=== PATIENT | male | born 1945 ===

== ENCOUNTER 2025-06-27 15:05 | Outpatient (AMB) | payer OTHER, SELFPAY ==
--- NOTE | 2025-06-27 15:09 | MHC.PC.OV ---
Vital Signs 06/27/25 15:23 Height 5 ft 3.78 in Weight 180 lb BMI 31.1 BP 110/58 L Blood Pressure Location Rt brachial Position Sitting Respiration 14 Pulse 84 Pulse Source Pulse Oximeter Temp 98.1 F Temp Source Oral Pulse Oximetry (%) 94 Oxygen Delivery Method Room Air Intake Visit Reasons: est/medication refills Intake Note: establish and med refills Professor Of Literacy Required: No Allergies No Known Allergies Allergy (Verified 06/27/25 15:15) Medication List - Last Reconciled 06/27/25 by Perri Hou MD atorvastatin 10 mg PO DAILY bupropion HCl SR 150 mg PO BID citalopram 40 mg PO DAILY finasteride 5 mg PO DAILY lisinopril 2.5 mg PO DAILY mesalamine 800 mg PO QID metformin 500 mg PO TID metoprolol succinate ER 12.5 mg PO DAILY tamsulosin 0.8 mg PO BEDTIME vibegron (Gemtesa) 75 mg PO DAILY Tobacco use date assessed: 06/27/25 Fall risk assessment: 2 + Falls in past year Last assessed Fall Risk: 06/27/25 Dental Screening Dental Screen Date: 06/27/25 Did you have a dental visit in the last 12 months?: Yes Did you have a dental problem in the last 6 months where you did not have access to dental care?: No Was dental information given to patient?: Patient has dentist HPI HPI Comments History of Present Illness Details The patient is aan 80 year old male with a past medical history of ulcerative colitis, diabetes, transferring from Dr Kessler. Patients records have not yet been received. Patient has his medication list. He has some apparent memory issues and is by himself today. Unfortunately records not recieved. He says he lives alone and cares for himself Diabetes-patient unsure of last A1C. He is on metformin 500 mg tid. CV: on toprol 50mg twice daily, lisinopril,lipitor BH: on wellbutrin, celexa. Urology: on flomax. He does complain of recent polyuria ROS CONSTITUTIONAL: Denies weight loss, fever and chills. HEENT: Denies changes in vision and hearing. RESPIRATORY: Denies SOB and cough. CV: Denies palpitations and CP GI: Denies abdominal pain, nausea, vomiting and diarrhea. : see HPI MSK: Denies new myalgia and joint pain. SKIN: Denies rash and pruritus. NEUROLOGICAL: Denies headache PSYCHIATRIC: Denies recent changes in mood. PHYSICAL EXAM: GENERAL: Alert and oriented x 3. NAD EYES: EOMI. Anicteric. HENT: Moist mucous membranes. No scleral icterus. No cervical lymphadenopathy. LUNGS: Clear to auscultation bilaterally. CARDIOVASCULAR: Regular rate and rhythm. No murmur. No JVD. ABDOMEN: Soft, non-tender +bs EXTREMITIES: No edema. Non-tender. SKIN: No rashes or lesions. Warm. NEUROLOGIC: No focal neurological deficits. CN II-XII grossly intact PSYCHIATRIC: Cooperative. Appropriate mood and affect [facility] Medical History (Updated 07/02/25 @ 20:18 by Perri Hou MD) Incontinence Tremor Diabetes Family History Other FH: mental illness Social History (Updated 06/27/25 @ 15:22 by Benito Vallejo MA) Housing: House Alcohol intake: former Patient Tobacco Use Status: Former Tobacco user Tobacco use type: Cigarette Cigarette Packs Per Day: 1 Years Smoked: 30 e-Cigarette/Vaping Use: Never Used Second Hand Smoke Exposure: No service: Yes Current occupational status: retired Current occupational exposures/hazards: No Cognitive needs: No Hearing needs: No Vision needs: No Questionnaire PHQ-9 Over the last 2 weeks, how often have you been bothered by any of the following problems? 1. Little interest or pleasure in doing things: not at all 2. Feeling down, depressed, or hopeless: not at all 3. Trouble falling or staying asleep, or sleeping too much: several days 4. Feeling tired or having little energy: several days 5. Poor appetite or overeating: several days 6. Feeling bad about yourself - or that you are a failure or have let yourself or your family down: not at all 7. Trouble concentrating on things, such as reading the newspaper or watching television: not at all Depression Screening Interpretation: Negative Depression Screening Done: Yes 73883 - PHQ-9 Billing: Yes Source: Developed by Drs. Jose Antonio Marshall, Vicki Hernandez, Silviano Elena and colleagues, with an educational adin from [employer]. Thrive Questionnaire Date Thrive assessed: 06/27/25 I am a: Patient What is your living situation today?: I have a steady place to live Within the past 12 months, did the food you bought not last and you didn't have the money to get more?: Never true Within the past 12 months, did you worry whether your food would run out before you got money to buy more?: Never true Do you have trouble paying for medicines?: No Do you have trouble getting transportation to medical appointments?: No Do you have trouble paying your heating and electricity bill?: No Do you have trouble taking care of your child, family member or friend?: No Do you have trouble with day-to-day activities such as bathing, preparing meals, shopping, managing finances, etc.?: Yes Are you currently unemployed and looking for a job?: No Are you interested in more education?: No Please select the resources that you would like help with: Daily support THRIVE Score: 0 AUDIT C Alcohol Use Questionnaire (AUDIT-C) 1. How often do you have a drink containing alcohol?: Never 2. How many drinks containing alcohol do you have on a typical day when you are drinking?: 1 or 2 3. How often do you have six or more drinks on one occasion?: Never Total Score: 0 EVA-7 AMB Questionnaire EVA-7 Date EVA - 7 assessed: 06/27/25 Source: Developed by Drs. Jose Antonio Marshall, Vicki Hernandez, Silviano Elena and colleagues, with an educational adin from [employer]. ACT Questionnaire In the past 4 weeks, how much of the time did your asthma keep you from getting as much done at work, school or at home?: None of the time During the past 4 weeks, how often have you had shortness of breath?: Not at all During the past 4 weeks, how often did your asthma symptoms wake you up at night or earlier than usual in the morning?: Not at all During the past 4 weeks, how often have you had to use your rescue inhaler or nebulizer medication?: Not at all How would you rate your asthma control during the past 4 weeks?: Completely controlled Score: 25 Physical exam (Primary Care) Vital Signs: Last Vital Signs Temp 98.1 F 06/27/25 15:23 Pulse 84 06/27/25 15:23 Resp 14 06/27/25 15:23 BP 110/58 L 06/27/25 15:23 Pulse Ox 94 06/27/25 15:23 Oxygen Delivery Method Room Air 06/27/25 15:23 BMI result Body Mass Index 31.1 Tobacco/Smoking Status: Tobacco use Status Tobacco use date assessed 06/27/25 06/27/25 15:26 Patient Tobacco Use Status Former Tobacco user 06/27/25 15:26 Tobacco use type Cigarette 06/27/25 15:26 e-Cigarette/Vaping Use Never Used 06/27/25 15:26 Depression Screening Interpretation: Negative Thrive Assessment: Date of Thrive Assessment Date Thrive assessed 06/27/25 06/27/25 15:37 Coding Level of Care Code Est Pt Level 4 (16487) Complex EM visit Add On G2211 Diagnoses Type 2 diabetes mellitus without complication, without long-term current use of insulin E11.9 Diabetes mellitus type: type 2 Diabetes mellitus terminal operations supervisor insulin use: without terminal operations supervisor use Diabetes mellitus complication status: without complication Ulcerative colitis with complication, unspecified location K51.919 Ulcerative colitis location: unspecified ulcerative colitis location Digestive disease complication type: unspecified complication Benign prostatic hyperplasia with lower urinary tract symptoms, symptom details unspecified N40.1 Lower urinary tract symptom presence: symptoms present Lower urinary tract symptom detail: unspecified Urinary incontinence, unspecified type R32 Incontinence type: urinary Urinary Incontinence type: unspecified incontinence Additional Codes PHQ-9 - 28123 - PHQ-9 Billing: Yes ([id number]) Assessment & Plan Assessment & Plan (1) Diabetes: Code(s): E11.9 - Type 2 diabetes mellitus without complications Category: Medical Qualifiers: Diabetes mellitus type: type 2 Diabetes mellitus fci insulin use: without fci use Diabetes mellitus complication status: without complication Qualified Code(s): E11.9 - Type 2 diabetes mellitus without complications (2) Ulcerative colitis: Code(s): K51.90 - Ulcerative colitis, unspecified, without complications Category: Medical Qualifiers: Ulcerative colitis location: unspecified ulcerative colitis location Digestive disease complication type: unspecified complication Qualified Code(s): K51.919 - Ulcerative colitis, unspecified with unspecified complications (3) BPH (benign prostatic hyperplasia): Code(s): N40.0 - Benign prostatic hyperplasia without lower urinary tract symptoms Category: Medical Qualifiers: Lower urinary tract symptom presence: symptoms present Lower urinary tract symptom detail: unspecified Qualified Code(s): N40.1 - Benign prostatic hyperplasia with lower urinary tract symptoms (4) Incontinence: Code(s): R32 - Unspecified urinary incontinence Category: Medical Qualifiers: Incontinence type: urinary Urinary Incontinence type: unspecified incontinence Qualified Code(s): R32 - Unspecified urinary incontinence Plan 80 year old male presenting to [facility] Reviewed patient report of past medical, surgical, social -his records have not yet been received and he has some memory/cognitive deficit Diabetes-check labs polyuria, BPH-referral urology. Orders: Orders Lipid Panel 06/27/25 E11.9 - Type 2 diabetes mellitus without complications, K51.90 - Ulcerative colitis, unspecified, without complications, R25.1 - Tremor, unspecified TSH reflex Free T4 06/27/25 E11.9 - Type 2 diabetes mellitus without complications, K51.90 - Ulcerative colitis, unspecified, without complications, R25.1 - Tremor, unspecified Vitamin B12 and Folate 06/27/25 E11.9 - Type 2 diabetes mellitus without complications, K51.90 - Ulcerative colitis, unspecified, without complications, R25.1 - Tremor, unspecified Urine Culture 06/27/25 N40.0 - Benign prostatic hyperplasia without lower urinary tract symptoms Hemoglobin A1c 06/27/25 E11.9 - Type 2 diabetes mellitus without complications, K51.90 - Ulcerative colitis, unspecified, without complications, R25.1 - Tremor, unspecified Comprehensive Met. Panel 06/27/25 E11.9 - Type 2 diabetes mellitus without complications, K51.90 - Ulcerative colitis, unspecified, without complications, R25.1 - Tremor, unspecified Referrals Urology Referral N40.0 - Benign prostatic hyperplasia without lower urinary tract symptoms Medications: New lisinopril 10 mg PO DAILY metoprolol succinate ER 50 mg PO BID mesalamine must be taken on empty stomach; no food 1 hr after or 2-3 hrs before dose 800 mg PO QID 360 tabs 3RF
[2025-06-27 15:23] VITALS: BP 110/58; PULSE 84; RESP 14; TEMP 36.7; O2SAT 94; BMI 31.1
--- OUTSIDE RECORDS SUMMARY | 2025-06-27 20:19 | XMS_ITS | Data Portability ---
Author Organization [place] - [facility] Address [address] [place] [address] Care Team Providers Care Dispatcher [employer]active [employer] Disposal Name Role Phone [facility]OWN Primary Care Provider [phone] Assessment Encounter Date Assessment Date Assessment LastModified by Organization Details LastModified Time 05/17/2021 05/17/2021 Time On Scene with Patient: 00:41:28 DDX: UTI, urinary retention, hyperglycemia, acute kidney injury Pt is concerned for his urinary frequency that he has had for the past 2 weeks. He also describes a dry mouth with increased thirst. His UA does not demonstrate infection but a large amount of glucose in his urine. His CHEM 8 ISTAT shown to have a POC of 286. He has been having these same results since he was seen in 03/2021. His urine results from past tests also indicate a large amount of urine. There are no physical signs of retention which makes this less likely. At this time suggested patient see his PCP as soon as possible to discuss changes in his medications. He is currently on metformin only, 500 mg 3 times a day. Suspect he may need to add or change this for better glycemic control. / Further, reviewed contents of his fridge with him. He has a majority of his food diabetic friendly with the exception of his protein bars. He enjoys eating at [employer]. He is also dealing with his who is in a assisted due to her advancing dementia. This is hard for him and also concerning for depression. Pt is going to see his PCP on Thursday for re-evaluation. I will forward this note to their office to ensure information is shared and the best plans for patient can be made. At completion of visit, patient was standing at the door, waving. His gait was steady, resp easy and he appeared comfortable. He was getting ready to leave to go to [employer] for dinner. [email or web address] Not available 05/18/2021 07:58:04 Plan of Treatment Reminders Order Date Submit Date Provider Last Modified By Organization Details Last Modified Time Details Appointments None recorded. Lab BMP + ionized calcium, serum or plasma 2020 021 [facility] [address], [place], [address], 17:37:45 urinalysis , dipstick 2020 [facility]21 [email or web address], [address], [place], [address], 17:28:09 Referral None recorded. Procedures None recorded. Surgeries None recorded. Imaging None recorded. Medication Orders None recorded. Patient TargetsNo targets recorded. Patient Instructions Encounter Date Encounter Id Patient Instructions Last Modified By Organization Details Last Modified Time 05/17/2021 [id number] [facility] came to evaluate you for urinary frequency. YOu have been having this for the past 2 weeks. You are not having any pain, discomfort, fevers, chills. We checked your urine and you have A LOT of glucose in it. We did labs on scene. Your glucose is 289 today. There is no sign of infection. You need to look at your diet and decrease the amount of sugar in your diet. You are peeing frequentlywhich is a result of your high sugar. Please follow up with your PCP as planned on May. If you develop any pain, nausea, vomiting, shortness of breath or you feel worse, go to the ED> Thank you for your visit with [facility] today. We cannot always find the exact cause of your symptoms during your initial visit. Please follow up with your primary care provider or specialist to be rechecked or seek medical attention if your symptoms do not go away or get worse. If you develop any new or worsening symptoms and need after hours care, please go to nearest ER and/or call 911. If you have additional concerns or develop a change in your condition between 8am-10pm, please call [facility] at [phone] to help navigate your care. [email or web address] Not available 05/17/2021 17:42:51 Reason for Referral None Reported. Results Created Date Observation Date Name Description Value Unit Range Abnormal Flag Note LastModifiedBy Organization Detail LastModifiedTime 05/17/20 21 05/17/2021 urina lysis , dipst ick Appearance clear Not Available [facility] [address] [place], [address], 05/17/2021 17:25:58 05/17/20 21 05/17/2021 urina lysis , dipst ick Color yellow Not Available [facility] [address] [place], [address], 05/17/2021 17:25:58 05/17/20 21 05/17/2021 urina lysis , dipst ick Glucose (ref: neg) ++++ Not Available [facility] [address] [place], [address], 05/17/2021 17:25:58 05/17/2005/17/2021 urina lysis , dipst ick Bilirubin (ref: neg) Neg Not Available [facility] [address] [place], [address], 05/17/2021 17:25:58 05/17/2005/17/2021 urina lysis , dipst ick Ketones (ref: neg) Not Available [facility] [address] [place], [address], 05/17/2021 17:25:58 05/17/2005/17/2021 urina lysis , dipst ick Specific [place] (ref: 1.003 - 1.035) 1.010 Not Available [facility] [address] [place], [address], 05/17/2021 17:25:58 05/17/2005/17/2021 urina lysis , dipst ick Blood (ref: neg) Not Available [facility] [address] [place], [address], 05/17/2021 17:25:58 05/17/20 21 05/17/2021 urina lysis , dipst ick pH (ref: 5-7) 5.0 Not Available [facility] - [facility] [address] [place], [address], 05/17/2021 17:25:58 05/17/20 21 05/17/2021 urina lysis , dipst ick Protein (ref: neg) Not Available [facility] - [facility] [address] [place], [address], 05/17/2021 17:25:58 05/17/20 21 05/17/2021 urina lysis , dipst ick Urobilinogen (ref: 0.2) 0 Not Available [facility] - [address], [address], 05/17/2021 17:25:58 05/17/20 21 05/17/2021 urina lysis , dipst ick Nitrites (ref: neg) negati ve Not Available [facility] - [address], [address], 05/17/2021 17:25:58 05/17/20 21 05/17/2021 urina lysis , dipst ick Leukocytes (ref: neg) Neg Not Available [facility] - [address], [address], 05/17/2021 17:25:58 05/17/20 21 05/17/2021 urina lysis , dipst ick Location [facility], [address] [place] [address], [phone] Not Available [facility] - Home [address] [place] [address], [address], 05/17/2021 17:25:58 05/17/2005/17/2021 BMP + IONIZ ED CALCI UM, SERUM OR PLASM A glu 289 mg/dL 70-105 Not Available [facility] [address] [place], [address], 05/17/2021 17:37:45 05/17/20 21 05/17/2021 BMP + IONIZ ED CALCI UM, SERUM OR PLASM A BUN 29 mg/dL 8-26 Not Available [address], [address], 05/17/2021 17:37:45 05/17/20 21 05/17/2021 BMP + IONIZ ED CALCI UM, SERUM OR PLASM A crea 1.1 mg/dL 0.6-1. 3 Not Available [address], [address], 05/17/2021 17:37:45 05/17/20 21 05/17/2021 BMP + IONIZ ED CALCI UM, SERUM OR PLASM A Na 136 mmol/ L 138-14 6 Not Available [address], [address], 05/17/2021 17:37:45 05/17/20 21 05/17/2021 BMP + IONIZ ED CALCI UM, SERUM OR PLASM A K 4.6 mmol/ L 3.5-4. 9 Not Available [address], [address], 05/17/2021 17:37:45 05/17/20 21 05/17/2021 BMP + IONIZ ED CALCI UM, SERUM OR PLASM A cL 100 mmol/ L 98-109 Not Available [address], [address], 05/17/2021 17:37:45 05/17/20 21 05/17/2021 BMP + IONIZ ED CALCI UM, SERUM OR PLASM A TCO2 23 mmol/ L 24-29 Not Available [address], [address], 05/17/2021 17:37:45 05/17/20 21 05/17/2021 BMP + IONIZ ED CALCI UM, SERUM OR PLASM A angap 19 mmol/ L 10-20 Not Available [facility] [address] [place], [address], 05/17/2021 17:37:45 05/17/2005/17/2021 BMP + IONIZ ED CALCI UM, SERUM OR PLASM A ica 1.26 mmol/ L 1.12-1 .32 Not Available [facility] [address] [place], [address], 05/17/2021 17:37:45 05/17/2005/17/2021 BMP + IONIZ ED CALCI UM, SERUM OR PLASM A HCT 42 %pcv 38-51 Not Available [facility] [address] [place], [address], 05/17/2021 17:37:45 05/17/2005/17/2021 BMP + IONIZ ED CALCI UM, SERUM OR PLASM A Hb 14.3 g/dL 12-17 Not Available [facility] [address] [place], [address], 05/17/2021 17:37:45 Result Notes None recorded. Procedures Surgical History Date Name Laterality Status Provider Name and Address Organization Details Recorded Time 05/17/20 21 Venipuncture - completed JESUS GAN NP [address] [place] [address], [address], [place] - [facility] 05/17/2021 22:18:13 Imaging Results None recorded. Procedure Notes None recorded. Medical Equipment None Reported. Allergies No known drug allergies Medications Name Sig Start Date Stop Date Status Note LastModified by Organization Details LastModified Time metformin 500 mg tablet TAKE 1 TABLET BY MOUTH THREE TIMES DAILY active Not Available Not Available No t Available bupropion HCl SR 150 mg tablet,12 hr sustained-r elease TAKE 1 TABLET BY MOUTH TWICE DAILY active Not Available Not Available No t Available citalopram 40 mg tablet TAKE 1 TABLET BY MOUTH DAILY active Not Available Not Available No t Available atorvastati n 10 mg tablet TAKE 1 TABLET BY MOUTH DAILY active Not Available Not Available No t Available ondansetron HCl 4 mg tablet TAKE 1 TABLET BY MOUTH EVERY 8 HOURS FOR 5 DAYS NEEDED FOR NAUSEA OR VOMITING active Not Available Not Available No t Available tamsulosin 0.4 mg capsule TAKE 1 CAPSULE BY MOUTH EVERY EVENING 2 HOURS AFTER LAST MEAL OF THE DAY active Not Available Not Available No t Available cephalexin 500 mg capsule TAKE 1 CAPSULE BY MOUTH FOUR TIMES DAILY FOR 10 DAYS 05/17 completed Not Available Not Available Not Available lisinopril 10 mg tablet TAKE 1 TABLET BY MOUTH DAILY active Not Available Not Available No t Available metoprolol tartrate 50 mg tablet TAKE 1 TABLET BY MOUTH TWICE DAILY active Not Available Not Available No t Available oxybutynin chloride ER 5 mg tablet,exte nded release 24 hr TAKE 1 TABLET BY MOUTH EVERY DAY active Not Available Not Available No t Available gabapentin 300 mg capsule TAKE 1 CAPSULE BY MOUTH THREE TIMES DAILY FOR 7 DAYS NEEDED FOR PAIN active Not Available Not Available No t Available mupirocin 2 % topical ointment MARKUS EXT AA BID FOR 7 DAYS MARKUS TO AFFECTED SKIN active Not Available Not Available No t Available mirtazapine 15 mg tablet TAKE 1 TABLET BY MOUTH DAILY AT BEDTIME active Not Available Not Available No t Available aspirin active Not Available Not Avail able Not Available Januvia 100 mg tablet TAKE 1 TABLET BY MOUTH DAILY active Not Available Not Available No t Available mesalamine 800 mg tablet,elodia yed release TAKE 1 TABLET BY MOUTH FOUR TIMES DAILY active Not Available Not Available No t Available Myrbetriq 50 mg tablet,exte nded release TAKE 1 TABLET BY MOUTH EVERY DAY active Not Available Not Available No t Available Vitals Date Recorded Respiratory rate Oxygen saturation Oxygen saturation in Arterial blood by Pulse oximetry Body temperature Heart rate Systolic And Diastolic Provider Name and Address Organization Details Last Updated DateTime 1 18 /min 96 % 96 % 97.1 [degF] 70 /min 102/58 mm[Hg] Not Available [facility] 17:18:59 Social History None recorded. Functional Status None recorded. Mental Status None recorded. Family History Nothing Reported. Medical History Condition Response Diabetes Y Coronary Artery Disease Y High Cholesterol Y Pulmonary Embolism N Cancer Y Hypertension Y Stroke N Asthma N COPD N Kidney Disease N Past Encounters Encounter ID Performer Location Encounter Start Date Encounter Closed Date Diagnosis/Indication Diagnosis SNOMED-CT Code Diagnosis ICD10 Code Diagnosis IMO Codes Diagnosis Note [id number] JESUS GAN NP [facility] [address] [place] [address] 05/17/2021 17:11:15 05/19/2021 15:20:25 Increased frequency of urination 991416000 R35.0 Hyperglycemia 14802849 R 73.9 Health Concerns Section Related Observation LastModified by Organization Detai ls LastModified Time None Recorded Concern Status LastModified by Organization Details LastModified Time None Recorded Advance Directives Directive None Recorded Payers Insurance Date Sequence Insurance Name Policy Number Policy Bang Covered Member ID Bang Member ID Guarantor Name 05/17/2021 1 [employer] - MEDICARE ADVANTAGE PLAN (MEDICARE REPLACEMENT HMO) [id number] 2 Ernesto Long [id number] Ernesto Long Notes Date Note Type Note Provider Name and Address Organization Details Recorded Time 05/17/2021 text/html 76 year-old male with history of DM, UC, depression who calls to his home for evaluation of urinary frequency.PT reports he has been going to the bathroom to void every 1-2 hours for the past 2 weeks. He is able to sleep for 4-5 hours after taking his sleeping medications but then when he gets up it starts all over again. There has been no change in his blood sugars but they have been high. They have been running in the high 200's and sometimes low 300's. He denies any fevers, chills, abdominal pain, pelvic pain. He is eating without difficulty and denies any nausea, vomiting. His appetite has been unchanged.His last A1C was in 01/2021 and was 7 or so per patient. JESUS GAN NP [address], [place], [address], [place] - [facility] 05/18/2021 07:58:30
--- OUTSIDE RECORDS SUMMARY | 2025-06-27 20:19 | XMS_ITS ---
Author Name [facility] Organization Unknown Care Team Organization Name Specialty Phone Email Start Date End Da [facility] NO PCP Primary Care 01/23/2025
== END 2025-06-27 15:48 | disposition home or self-care (01) ==
PROVIDERS: PCP Internal Medicine; Visit Provider Internal Medicine
DX: E11.9 Type 2 diabetes mellitus without complications (principal); K51.919 Ulcerative colitis, unspecified with unspecified complications; N40.1 Benign prostatic hyperplasia with lower urinary tract symptoms; R32 Unspecified urinary incontinence

== ENCOUNTER → 2025-06-27 15:05 | Outpatient (BNVA) | payer MEDICARE, SELFPAY | PROVIDERS: PCP Internal Medicine; Visit Provider Internal Medicine | DX: Z76.89 Persons encountering health services in other specified circumstances (principal); E11.9 Type 2 diabetes mellitus without complications; K51.919 Ulcerative colitis, unspecified with unspecified complications; N40.0 Benign prostatic hyperplasia without lower urinary tract symptoms; R32 Unspecified urinary incontinence; Z79.84 Long term (current) use of oral hypoglycemic drugs; Z79.899 Other long term (current) drug therapy; Z13.31 Encounter for screening for depression | CPT/HCPCS: 96127; 96160; 99212 ==

== ENCOUNTER 2025-07-07 09:28 | Outpatient (REF) | payer MEDICARE, SELFPAY ==
--- OUTSIDE RECORDS SUMMARY | 2025-07-07 10:30 | XMS_ITS | Data Portability ---
Author Organization [place] [facility] Address [address] [place] [address] Care Team Providers Care Belt Puncher Name Role Phone CHI BROWN Primary Care Provider Assessment Encounter Date Assessment Date Assessment LastModified [...] his protein bars. He enjoys eating at [employer]. He is also dealing with his who is in a mcc due to her advancing dementia. This is [...] getting ready to leave to go to [employer] for dinner. [email or web address] Not available 05/18/2021 07:58:04 Plan of Treatment Reminders Order Date Submit Date Provider Last Modified By Organization Details Last Modified Time Details Appointments None recorded. Lab BMP + ionized calcium, serum or plasma 2020 021 [facility] [address], [place], [address], 17:37:45 urinalysis , dipstick 2020 [email or web address], [address], [place], [address], 17:28:09 Referral None recorded. Procedures None recorded. Surgeries None recorded. Imaging None recorded. Medication Orders None recorded. Patient TargetsNo targets recorded. Patient Instructions Encounter Date Encounter Id Patient Instructions Last Modified By Organization Details Last Modified Time 05/17/2021 [id number] [facility] came to evaluate you for urinary frequency. [...] ED> Thank you for your visit with [facility] today. We cannot always find the exact [...] in your condition between 8am-10pm, please call [facility] at [phone] to help navigate your care. [email or web address] Not available 05/17/2021 17:42:51 Reason for Referral None Reported. Results Created Date Observation Date Name Description Value Unit Range Abnormal Flag Note LastModifiedBy Organization Detail LastModifiedTime 05/17/20 21 05/17/2021 urina lysis , dipst ick Appearance clear Not Available [facility] [address] [place], [address], 05/17/2021 17:25:58 05/17/20 21 05/17/2021 urina lysis , dipst ick Color yellow Not Available [facility] [place] [address] [place], [address], 05/17/2021 17:25:58 05/17/20 21 05/17/2021 urina lysis , dipst ick Glucose (ref: neg) ++++ Not Available [facility] [place] [address] [place], [address], 05/17/2021 17:25:58 05/17/2005/17/2021 urina lysis , dipst ick Bilirubin (ref: neg) Neg Not Available [facility] [place] [address] [place], [address], 05/17/2021 17:25:58 05/17/2005/17/2021 urina lysis , dipst ick Ketones (ref: neg) Not Available [facility] [place] [address] [place], [address], 05/17/2021 17:25:58 05/17/2005/17/2021 urina lysis , dipst ick Specific [place] (ref: 1.003 - 1.035) 1.010 Not Available [facility] [place] [address] [place], [address], 05/17/2021 17:25:58 05/17/2005/17/2021 urina lysis , dipst ick Blood (ref: neg) Not Available [facility] [place] [address] [place], [address], 05/17/2021 17:25:58 05/17/20 21 05/17/2021 urina lysis , dipst ick pH (ref: 5-7) 5.0 Not Available [facility] - [address] [place], [address], 05/17/2021 17:25:58 05/17/20 21 05/17/2021 urina lysis , dipst ick Protein (ref: neg) Not Available [facility] - Home [address] [place], [address], 05/17/2021 17:25:58 05/17/20 21 05/17/2021 urina lysis , dipst ick Urobilinogen (ref: 0.2) 0 Not Available [facility] - [address], [address], 05/17/2021 17:25:58 05/17/20 21 05/17/2021 urina lysis , dipst ick Nitrites (ref: neg) negati ve Not Available [facility] - [address], [address], 05/17/2021 17:25:58 05/17/20 21 05/17/2021 urina lysis , dipst ick Leukocytes (ref: neg) Neg Not Available [facility] - [address], [address], 05/17/2021 17:25:58 05/17/20 21 05/17/2021 urina lysis , dipst ick [facility], [address] [place] [address], [id number] Not Available [facility] - Home [address] [place] [address], [address], 05/17/2021 17:25:58 05/17/2005/17/2021 BMP + IONIZ ED CALCI UM, SERUM OR PLASM A glu 289 mg/dL 70-105 Not Available [facility] [address] [place], [address], 05/17/2021 17:37:45 05/17/20 21 05/17/2021 BMP + IONIZ ED CALCI UM, SERUM OR PLASM A BUN 29 mg/dL 8-26 Not Available [address], [address], 05/17/2021 17:37:45 05/17/20 21 05/17/2021 BMP + IONIZ ED CALCI UM, SERUM OR PLASM A crea 1.1 mg/dL 0.6-1. 3 Not Available [address], [address], 05/17/2021 17:37:45 05/17/20 21 05/17/2021 BMP + IONIZ ED CALCI UM, SERUM OR PLASM A Na 136 mmol/ L 138-14 6 Not Available [address], [address], 05/17/2021 17:37:45 05/17/20 21 05/17/2021 BMP + IONIZ ED CALCI UM, SERUM OR PLASM A K 4.6 mmol/ L 3.5-4. 9 Not Available [address], [address], 05/17/2021 17:37:45 05/17/20 21 05/17/2021 BMP + IONIZ ED CALCI UM, SERUM OR PLASM A cL 100 mmol/ L 98-109 Not Available [address], [address], 05/17/2021 17:37:45 05/17/20 21 05/17/2021 BMP + IONIZ ED CALCI UM, SERUM OR PLASM A TCO2 23 mmol/ L 24-29 Not Available [address], [address], 05/17/2021 17:37:45 05/17/20 21 05/17/2021 BMP + IONIZ ED CALCI UM, SERUM OR PLASM A angap 19 mmol/ L 10-20 Not Available [facility] [address] [place], [address], 05/17/2021 17:37:45 05/17/2005/17/2021 BMP + IONIZ ED CALCI UM, SERUM OR PLASM A ica 1.26 mmol/ L 1.12-1 .32 Not Available [facility] [address] [place], [address], 05/17/2021 17:37:45 05/17/2005/17/2021 BMP + IONIZ ED CALCI UM, SERUM OR PLASM A HCT 42 %pcv 38-51 Not Available [facility] [address] [place], [address], 05/17/2021 17:37:45 05/17/2005/17/2021 BMP + IONIZ ED CALCI UM, SERUM OR PLASM A Hb 14.3 g/dL 12-17 Not Available [facility] [address] [place], [address], 05/17/2021 17:37:45 Result Notes None recorded. Procedures Surgical History Date Name Laterality Status Provider Name and Address Organization Details Recorded Time 05/17/20 21 Venipuncture - completed JESUS GAN NP [address] [place] [address], [address], [place] - [facility] 05/17/2021 22:18:13 Imaging Results [...] Cholesterol Y Pulmonary Embolism N Cancer Y Stroke N Hypertension Y COPD N Asthma N Kidney Disease N Past Encounters Encounter ID Performer Location Encounter Start Date Encounter Closed Date Diagnosis/Indication Diagnosis SNOMED-CT Code Diagnosis ICD10 Code Diagnosis IMO Codes Diagnosis Note [id number] JESUS GAN NP [facility] [address] [place] [address] 05/17/2021 17:11:15 05/19/2021 15:20:25 Increased frequency of urination 825388514 R35.0 Hyperglycemia 31461847 R 73.9 Health Concerns Section Related Observation LastModified by Organization Detai ls LastModified Time None Recorded Concern Status LastModified by Organization Details LastModified Time None Recorded Advance Directives Directive None Recorded Payers Insurance Date Sequence Insurance Name Policy Number Policy Bang Covered Member ID Bang Member ID Guarantor Name 05/17/2021 1 [employer] - MEDICARE ADVANTAGE PLAN (MEDICARE REPLACEMENT HMO) [id number] 2 Ernesto Long [id number] Ernesto Long Notes Date Note Type Note [...] patient. JESUS GAN NP [address], [place], [address], [place] [facility] 05/18/2021 07:58:30
[2025-07-07 12:02] LABS: Alanine Aminotransferase 14 U/L (0-40); Albumin Level 4.0 g/dL (3.5-5.0); Alkaline Phosphatase 59 U/L (39-117); Anion Gap 11 (12-20); Aspartate Amino Transferase 21 U/L (5-37); Blood Urea Nitrogen 11 mg/dL (9-16); Calcium 8.8 mg/dL (8.4-10.2); Carbon Dioxide 30 mmol/L (22-29); Chloride 107 mmol/L (96-108); Cholesterol 125 mg/dL (<200); Estimated Glomerular Filt Rate > 60; HDL Cholesterol 38 mg/dL (>40); Potassium 4.2 mmol/L (3.3-5.1); Sodium 144 mmol/L (135-145); Total Protein 6.5 g/dL (6.5-8.0); Triglycerides 104 mg/dL (<150)
[2025-07-07 12:25] LABS: Folate 10.1 ng/mL (> or = 4.0); Vitamin B12 375 pg/mL (200-900)
== END 2025-07-07 09:29 | disposition home or self-care (01) ==
LOC: HO.WFDLDS 09:28
PROVIDERS: Visit Provider Internal Medicine
DX: E11.9 Type 2 diabetes mellitus without complications (principal); N40.0 Benign prostatic hyperplasia without lower urinary tract symptoms; K51.90 Ulcerative colitis, unspecified, without complications; R25.1 Tremor, unspecified
CPT/HCPCS: 36415; 80053; 80061; 82607; 82746; 83036; 84443; 87086